=== PATIENT | male | born 1980 | race Caucasian/White ===

== ENCOUNTER 2018-07-23 20:02 | Emergency (ER) | payer OTHER, SELFPAY ==
[2018-07-23 20:15] VITALS: BP 115/74; PULSE 75; RESP 16; TEMP 37.4; O2SAT 96; BMI 37.8
--- NOTE | 2018-07-23 20:20 | DI.RAD.S_ITS ---
PROCEDURE: XR FOOT RT MIN 3V INDICATIONS: Landed on rock to heel, pain, limited weight bearing TECHNIQUE: 3 views of the foot were acquired. COMPARISON: None. FINDINGS: Bones: No fractures or dislocations. No suspicious bony lesions. Soft tissues: No tibiotalar joint effusion. Achilles tendon appears normal. IMPRESSION: No fracture Dictated by: Derrick Gonzalez M.D. on 07/23/2018 at 21:03 Approved by: Derrick Gonzalez M.D. on 07/23/2018 at 21:04
--- NOTE | 2018-07-24 00:18 | ED_ITS ---
HPI - Extremity Injury (Lower) General Chief Complaint: Extremity Injury, Lower Stated Complaint: Right foot injury from jumping off a rock Time Seen by Provider: 07/24/18 00:09 Source: patient Mode of arrival: ambulatory Limitations: no limitations History of Present Illness HPI Narrative: Patient is a 37-year-old male here for evaluation of a right foot/heel injury. He states that it occurred when he was wearing a pair of shoes jumping over a small body of water and when he landed landed directly on top of a rock. Had immediate pain in the heel of his foot. Was able to ambulate by walking on the ball of his foot. No prior injuries. Related Data Allergies Allergy/AdvReac Type Severity Reaction Status Date / Time No Known Drug Allergies Allergy Verified 07/23/18 20:20 Review of Systems Constitutional Denies fever(s) Musculoskeletal Denies tingling Comments: Heel pain Integumentary/Breasts Denies rash Neurologic Denies tingling and Denies paresthesias Hematologic/Lymphatic Denies easy bleeding and Denies easy bruising [facility] Medical History Healthy adult (Acute) Social History Smoking Status: Never smoker Social History Smoking Status: Never smoker Exam Initial Vital Signs Initial Vital Signs: Vital Signs Temperature 99.3 F 07/23/18 20:15 Pulse Rate 75 07/23/18 20:15 Respiratory Rate 16 07/23/18 20:15 Blood Pressure 115/74 07/23/18 20:15 Pulse Oximetry 96 07/23/18 20:15 Const General: cooperative, comfortable, well developed, well groomed and No acute distress Orientation: alert, awake and oriented x3 Cardio Pulses: dorsalis pedis present on the left Skin Lesions: no lesions Rashes: no rashes Extrem General: capillary refill normal Other: Patient with tenderness to palpation on the plantar aspect of his foot at the heel. Also had tenderness to palpation on the lateral aspect of his foot along the heel. Course Orders Ordered: ED Orders 07/23/18 20:20 XR foot RT min 3V Stat Discontinued Medications Hydrocodone Bitart/Acetaminophen (Vicodin Prepack) 1 bottle MISC SEEINSTR ONE Stop: 05/12/19 00:18 Last Admin: 07/24/18 00:26 Dose: 1 bottle Vital Signs - 8 hr 07/24/18 00:41 Temperature 98.2 F Pulse Rate 64 Respiratory Rate 16 Blood Pressure 119/81 Pulse Oximetry 97 MDM - Extremity Injury (Lower) Imaging Data Foot x-ray: Radiologist's impression: [address] [address] XRay Report Signed Patient: Anirudh Moss LMR#: [id number] : 1980Acct:[id number] Age/Sex: 37 / MDate of Service: 07/23/18 Loc: ED Accession Number: [id number] Procedure: XR foot RT min 3V Ordering Provider: Darryl Kent D.O. PROCEDURE: XR FOOT RT MIN 3V INDICATIONS: Landed on rock to heel, pain, limited weight bearing TECHNIQUE: 3 views of the foot were acquired. COMPARISON: None. FINDINGS: Bones: No fractures or dislocations. No suspicious bony lesions. Soft tissues: No tibiotalar joint effusion. Achilles tendon appears normal. IMPRESSION: No fracture Dictated by: Derrick Gonzalez M.D. on 07/23/2018 at 21:03 Approved by: Derrick Gonzalez M.D. on 07/23/2018 at 21:04 [facility] Narrative Medical decision making narrative: Patient neurovascularly intact. No fractures on the x-ray. He was given crutches for his comfort. He was given return precautions and care instructions. He expressed understanding and agreement with plan Discharge Plan Departure Patient Disposition: Home Clinical Impression: Injury of left heel Qualifiers: Encounter type: initial encounter Qualified Code(s): S99.922A - Unspecified injury of left foot, initial encounter Discharge Date/Time: 07/24/18 00:43 Interventions: ED Discharge Assessment Last Done: 07/24/18 00:41 Instructions: How to Use Crutches Activity Restrictions/Additional Instructions: Use the crutches for your comfort. Contact your primary care doctor for follow- up. Return to the emergency department for any new or worsening symptoms
[2018-07-24] MEDS: HYDROCODONE/ACET 5/325 PREPACK 1 BOTTLE MISC (00:26)
[2018-07-24 00:41] VITALS: BP 119/81; PULSE 64; RESP 16; TEMP 36.8; O2SAT 97
== END 2018-07-24 00:43 | disposition home or self-care (01) ==
PROVIDERS: Emergency Provider Emergency Medicine
DX: S99.922A Unspecified injury of left foot, initial encounter (principal)
CPT/HCPCS: 73630; 99282; 99283

== ENCOUNTER 2018-07-24 12:11 | Emergency (ER) | payer OTHER, SELFPAY ==
--- NOTE | 2018-07-24 12:19 | DI.CT.S_ITS ---
PROCEDURE: CT LE RT WO CON INDICATIONS: right foot, concern for fracture, talus? sent by [facility] TECHNIQUE: Noncontrast 1-1.5 mm axial sections acquired from above the tibiotalar joint to the bottom of the calcaneus, with coronal and sagittal reformats. COMPARISON: [facility], CR, XR FOOT RT MIN 3V, 07/23/2018, 20:24. FINDINGS: Image quality: Excellent. Bones: In this patient with this given history, scrutiny is given to the talus. No talar fractures can be seen. No fractures are seen involving the other bones of the foot and ankle. No dislocations. No suspicious lytic or blastic lesions are seen. Soft tissues: No significant soft tissue abnormality can be seen. IMPRESSION: No talar fracture. No fractures are seen elsewhere. Dictated by: Neeraj Pickett M.D. on 07/24/2018 at 12:07 Approved by: Neeraj Pickett M.D. on 07/24/2018 at 12:09
--- NOTE | 2018-07-24 12:22 | ED.LOWEXIN ---
HPI - Extremity Injury (Lower) General Chief Complaint: Extremity Injury, Lower Stated Complaint: CT of Rt foot/possible talus fracture Time Seen by Provider: 07/24/18 12:19 Source: patient and other (Dr. Laboy) Mode of arrival: ambulatory Limitations: no limitations History of Present Illness HPI Narrative: This is a 37-year-old male comes in at the request of Dr. dick from Orthopedic surgery. Patient was seen yesterday, had x-ray of his foot, Dr. dick review the images and was concerned about a possible talar fracture and requested patient have a CT of his foot here in the department. Patient states yesterday about 6:00 a.m. in the evening he had jumped off a rock across to a [place] and sort of patrick his foot and hit hard on the ground he states it was not a particularly long fall. Patient states he has had pain since then. He denies any other injuries, he denies any past injuries to the foot. He states he has had a history of fracture of his back as well as shoulder dislocation but denies any other medical problems. Related Data Previous Rx's Medication Instructions Recorded hydrocodone-acetaminophen [Castor] 1 tab PO Q6H PRN #10 tab 07/24/18 Allergies Allergy/AdvReac Type Severity Reaction Status Date / Time No Known Drug Allergies Allergy Verified 07/23/18 20:20 Review of Systems Musculoskeletal Reports as per HPI and Reports other (pain in the foot) [facility] Medical History Healthy adult (Acute) Social History Smoking Status: Never smoker Social History Smoking Status: Never smoker Exam Narrative Exam Narrative: GENERAL: Alert and oriented x three, well-nourished, well-appearing male in mild distress currently HEENT: Head normocephalic, atraumatic, EOMI, pupils reactive, face symmetric, moist mucous membranes EXTREMITIES: Normal range of motion, the patient has some over the dorsum of the right foot. There is no obvious swelling, there is no bruising. Patient does not have any specific bony tenderness but has some sort of generalized discomfort. Dorsalis pedis tibialis are 2+., no clubbing or edema. Neurovascularly intact NEUROLOGICAL: Cranial nerves II through XII grossly intact. Moving all extremities SKIN: Warm, dry, no petechiae, no rashes or lesions. Initial Vital Signs Initial Vital Signs: Vital Signs Temperature 97.6 F 07/24/18 12:23 Pulse Rate 78 07/24/18 12:23 Respiratory Rate 16 07/24/18 12:23 Blood Pressure 140/84 07/24/18 12:23 Pulse Oximetry 97 07/24/18 12:23 Course Orders Ordered: ED Orders 07/24/18 12:19 CT LE RT wo con Stat Vital Signs - 8 hr 07/24/18 12:23 07/24/18 12:29 Temperature 97.6 F Pulse Rate 78 Pulse Rate [Right Dorsalis Pedis] 78 Respiratory Rate 16 Blood Pressure 140/84 Pulse Oximetry 97 MDM - Extremity Injury (Lower) Imaging Data CT Lower extremity: Radiologist's impression: [address] [address] [address] Scan Report Signed Patient: Anirudh Moss LMR#: [id number] : 1980Acct:[id number] Age/Sex: 37 / MDate of Service: 07/24/18 Loc: ED Accession Number: [id number] Procedure: CT LE RT wo con Ordering Provider: Renata Malone D.O. PROCEDURE: CT LE RT WO CON INDICATIONS: right foot, concern for fracture, talus? sent by [facility] TECHNIQUE: Noncontrast 1-1.5 mm axial sections acquired from above the tibiotalar joint to the bottom of the calcaneus, with coronal and sagittal reformats. COMPARISON: [facility], CR, XR FOOT RT MIN 3V, 07/23/2018, 20:24. FINDINGS: Image quality: Excellent. Bones: In this patient with this given history, scrutiny is given to the talus. No talar fractures can be seen. No fractures are seen involving the other bones of the foot and ankle. No dislocations. No suspicious lytic or blastic lesions are seen. Soft tissues: No significant soft tissue abnormality can be seen. IMPRESSION: No talar fracture. No fractures are seen elsewhere. Dictated by: Neeraj Pickett M.D. on 07/24/2018 at 12:07 Approved by: Neeraj Pickett M.D. on 07/24/2018 at 12:09 [facility] Narrative Medical decision making narrative: Dr. dick reviewed patient's CT films and does not see any fracture. He does see some osteophytic changes. Patient does not need to change any of his care routine at this time. He has crutches which I encouraged him to continue use is having pain. We did discuss his based on his symptoms he could have had injury possibly to Tender ligament but I will give him some time, he can toe-touch weightbear if he continues to have symptoms he should follow-up. The patient did request some additional pain medication. He states he can easily set up follow-up with Dr. dick as needed. Discharge Plan Departure Patient Disposition: Home Clinical Impression: Foot pain, right Activity Restrictions/Additional Instructions: Dr. Laboy reviewed your images and does not see any fractures. Follow up with orthopedic surgery if you have continued symptoms that do not resolve in the next 7-10 days. Take pain medication as prescribed this medication can make you sleepy do not drive, perform his activities or making major decisions while taking it. Continue to weight bare as tolerated. Prescriptions: New hydrocodone-acetaminophen [Castor] 5-325 mg tablet 1 tab PO Q6H PRN (Reason: pain) Qty: 10 RF: 0 Referrals: Henrry Laboy MD [Physician] - Stand Alone Forms: Work Release Note
[2018-07-24 12:23] VITALS: BP 140/84; PULSE 78; RESP 16; TEMP 36.4; O2SAT 97; BMI 37.8
--- NOTE | 2018-07-24 12:25 | ED_ITS ---
HPI - Extremity Injury (Lower) General Chief Complaint: Extremity Injury, Lower Stated Complaint: CT of Rt foot/possible talus fracture Time Seen by Provider: 07/24/18 12:19 Source: patient and other (Dr. Laboy) Mode of arrival: ambulatory Limitations: no limitations History of Present Illness HPI Narrative: This is a 37-year-old male comes in at the request of Dr. dick from Orthopedic surgery. Patient was seen yesterday, had x-ray of his foot, Dr. dick review the images and was concerned about a possible talar fracture and requested patient have a CT of his foot here in the department. Patient states yesterday about 6:00 a.m. in the evening he had jumped off a rock across to a [place] and sort of patrick his foot and hit hard on the ground he states it was not a particularly long fall. Patient states he has had pain since then. He denies any other injuries, he denies any past injuries to the foot. He states he has had a history of fracture of his back as well as shoulder dislocation but denies any other medical problems. Related Data Previous Rx's Medication Instructions Recorded hydrocodone-acetaminophen [[place]] 1 tab PO Q6H PRN #10 tab 07/24/18 Allergies Allergy/AdvReac Type Severity Reaction Status Date / Time No Known Drug Allergies Allergy Verified 07/23/18 20:20 Review of Systems Musculoskeletal Reports as per HPI and Reports other (pain in the foot) [facility] Medical History Healthy adult (Acute) Social History Smoking Status: Never smoker Social History Smoking Status: Never smoker Exam Narrative Exam Narrative: GENERAL: Alert and oriented x three, well-nourished, well- appearing male in mild distress currently HEENT: Head normocephalic, atraumatic, EOMI, pupils reactive, face symmetric, moist mucous membranes EXTREMITIES: Normal range of motion, the patient has some over the dorsum of the right foot. There is no obvious swelling, there is no bruising. Patient does not have any specific bony tenderness but has some sort of generalized discomfort. Dorsalis pedis tibialis are 2+., no clubbing or edema. Neurovascularly intact NEUROLOGICAL: Cranial nerves II through XII grossly intact. Moving all ex tremities SKIN: Warm, dry, no petechiae, no rashes or lesions. Initial Vital Signs Initial Vital Signs: Vital Signs Temperature 97.6 F 07/24/18 12:23 Pulse Rate 78 07/24/18 12:23 Respiratory Rate 16 07/24/18 12:23 Blood Pressure 140/84 07/24/18 12:23 Pulse Oximetry 97 07/24/18 12:23 Course Orders Ordered: ED Orders 07/24/18 12:19 CT LE RT wo con Stat Vital Signs - 8 hr 07/24/18 12:23 07/24/18 12:29 Temperature 97.6 F Pulse Rate 78 Pulse Rate [Right Dorsalis Pedis] 78 Respiratory Rate 16 Blood Pressure 140/84 Pulse Oximetry 97 MDM - Extremity Injury (Lower) Imaging Data CT Lower extremity: Radiologist's impression: [address] [address] [address] Scan Report Signed Patient: Anirudh Moss LMR#: [id number] : 1980Acct:[id number] Age/Sex: 37 / MDate of Service: 07/24/18 Loc: ED Accession Number: [id number] Procedure: CT LE RT wo con Ordering Provider: Renata Malone D.O. PROCEDURE: CT LE RT WO CON INDICATIONS: right foot, concern for fracture, talus? sent by [facility] TECHNIQUE: Noncontrast 1-1.5 mm axial sections acquired from above the tibiotalar joint to the bottom of the calcaneus, with coronal and sagittal reformats. COMPARISON: [facility], CR, XR FOOT RT MIN 3V, 07/23/2018, 20:24. FINDINGS: Image quality: Excellent. Bones: In this patient with this given history, scrutiny is given to the talus. No talar fractures can be seen. No fractures are seen involving the other bones of the foot and ankle. No dislocations. No suspicious lytic or blastic lesions are seen. Soft tissues: No significant soft tissue abnormality can be seen. IMPRESSION: No talar fracture. No fractures are seen elsewhere. Dictated by: Neeraj Pickett M.D. on 07/24/2018 at 12:07 Approved by: Neeraj Pickett M.D. on 07/24/2018 at 12:09 [facility] Narrative Medical decision making narrative: Dr. dick reviewed patient's CT films and does not see any fracture. He does see some osteophytic changes. Patient does not need to change any of his care routine at this time. He has crutches which I encouraged him to continue use is having pain. We did discuss his based on his symptoms he could have had injury possibly to Tender ligament but I will give him some time, he can toe-touch weightbear if he continues to have symptoms he should follow-up. The patient did request some additional pain medication. He states he can easily set up follow-up with Dr. dick as needed. Discharge Plan Departure Patient Disposition: Home Clinical Impression: Foot pain, right Activity Restrictions/Additional Instructions: Dr. Laboy reviewed your images and does not see any fractures. Follow up with orthopedic surgery if you have continued symptoms that do not resolve in the next 7-10 days. Take pain medication as prescribed this medication can make you sleepy do not drive, perform his activities or making major decisions while taking it. Continue to weight bare as tolerated. Prescriptions: New hydrocodone-acetaminophen [[place]] 5-325 mg tablet 1 tab PO Q6H PRN (Reason: pain) Qty: 10 RF: 0 Referrals: Henrry Laboy MD [Physician] - Stand Alone Forms: Work Release Note
[2018-07-24 12:29] VITALS: PULSE 78
== END 2018-07-24 13:21 | disposition home or self-care (01) ==
PROVIDERS: Emergency Provider Emergency Medicine
DX: M79.671 Pain in right foot (principal); W17.89XA Other fall from one level to another, initial encounter
CPT/HCPCS: 73700; 99282; 99284